=== PATIENT | male | born 1985 | race Caucasian/White ===

== ENCOUNTER 2025-02-27 17:51 | Emergency (ER) | payer OTHER ==
[~2025-02-27] VITALS: Ht 175.3 cm; Wt 72.9 kg
[2025-02-27] MEDS ORDERED: PROMETHEGAN25 MG PR (18:07)
[2025-02-27] MEDS ORDERED: OXYCODONE HCL30 MG PO (18:07)
[2025-02-27] MEDS ORDERED: ONDANSETRON ODT4 MG PO (18:07)
--- OUTSIDE RECORDS SUMMARY | 2025-02-27 18:29 | XMS ---
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 Marci VISIT COUNT (12 MO.) 6 Anam Melo ([facility]) 1 [facility] NOTE: Visits indicate total known visits. ED/UCC VISIT TRACKING (12 MO.) 02/27/2025 17:52 MARIA ANTONIA Garcia [place] TYPE: Emergency COMPLAINT: - CHRONIC PAIN 02/17/2025 12:42 Anam HOYOS [place] ([facility]) TYPE: Emergency DIAGNOSES: - Other specified health status - Pain 11/07/2024 17:29 Anam HOYOS [place] ([facility]) TYPE: Emergency DIAGNOSES: - Fracture of one rib, left side, initial encounter for closed fracture - Rib pain 11/03/2024 21:16 Anam HOYOS [place] ([facility]) TYPE: Emergency DIAGNOSES: - Pleurodynia - Rib Pain 10/25/2024 14:00 Anam HOYOS [place] ([facility]) TYPE: Emergency DIAGNOSES: - Opioid use, unspecified with withdrawal - Back Pain - Weakness 10/24/2024 19:49 Anam HOYOS [place] ([facility]) TYPE: Emergency DIAGNOSES: - Syncope and collapse - Poss seizure - Possible Seizure 03/30/2024 21:10 Anam HOYOS [place] ([facility]) TYPE: Emergency DIAGNOSES: - Nausea with vomiting, unspecified - Emesis 03/19/2024 13:50 [facility] [place] . TYPE: Emergency COMPLAINT: - medication refill DIAGNOSES: - Medication Refill INPATIENT VISIT TRACKING (12 MO.) No inpatient visits to display in this time frame [email or web address]
[2025-02-27 18:37] VITALS: BP 157/96
== END 2025-02-27 18:38 | disposition home or self-care (01) ==
LOC: ED 17:51
DX: R46.89 Other symptoms and signs involving appearance and behavior (principal); R11.2 Nausea with vomiting, unspecified; M54.9 Dorsalgia, unspecified; Z88.0 Allergy status to penicillin; Z88.8 Allergy status to other drugs, medicaments and biological substances; Z79.899 Other long term (current) drug therapy
CPT/HCPCS: 99283